=== PATIENT | male | born 1965 | race Caucasian/White ===

== ENCOUNTER 2016-12-12 06:54 | Emergency (ER) | payer OTHER ==
[~2016-12-12] VITALS: Wt 97.0 kg
[~2016-12-12 06:54] MED LIST: DIAZ-90 PO; HYDR-762 PO; IBUP800T25 PO
[2016-12-12] MEDS ORDERED: HYDROCODONE/APAP (5/325) TAB PO ONE (07:30)
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
[2016-12-12] MEDS ORDERED: NAPR-260 PO (08:32)
[2016-12-12] MEDS ORDERED: HYDR-906 PO (08:32)
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
== END 2016-12-12 08:36 | disposition home or self-care (01) ==
LOC: FTE 06:54
DX: R07.81 Pleurodynia (principal)
CPT/HCPCS: 71100; Z7502; Z7610